=== PATIENT | female | born 2005 | race Caucasian/White ===

== ENCOUNTER 2025-02-25 12:10 | Emergency (ER) | payer OTHER ==
[~2025-02-25] VITALS: Ht 157.5 cm; Wt 58.1 kg
[2025-02-25] MEDS ORDERED: PRED20TA PO (12:33)
[2025-02-25] MEDS ORDERED: DOXY-226 PO (12:33)
[2025-02-25 12:40] VITALS: BP 118/68; TEMP 98.6; O2SAT 97
== END 2025-02-25 12:40 | disposition home or self-care (01) ==
LOC: ER 12:10
DX: J02.9 Acute pharyngitis, unspecified (principal); F32.A Depression, unspecified; Z88.0 Allergy status to penicillin; Z88.2 Allergy status to sulfonamides
CPT/HCPCS: A4606; A4663